=== PATIENT | male | born 1990 | race American Indian/Alaskan Native ===

== ENCOUNTER 2021-04-28 17:00 | Emergency (ER) | payer SELFPAY ==
[2021-04-28 18:01] VITALS: BP 130/79
[2021-04-28] MEDS ORDERED: IBUPROFEN 600 MG TAB PO ONE (21:26)
[2021-04-28] MEDS ORDERED: ACETAMINOPHEN 325 MG TAB PO ONE (21:27)
[2021-04-28 21:55] LABS: Basophils % (Auto) 0.4 % (0.0-1.8); Eosinophils % (Auto) 0.1 % (0.0-4.3); Hematocrit 40.8 % (35.5-45.6); Lymphocytes # (Auto) 0.9 K/mm3 (1.2-5.4); Lymphocytes % (Auto) 11.7 % (13.4-35.0); Mean Corpuscular HGB Conc 32 % (32-34); Mean Corpuscular Volume 74 fl (84-94); Monocytes # (Auto) 1.2 K/mm3 (0.0-0.8); Platelet Count 183 K/mm3 (140-440); Red Cell Distribution Width 15.2 % (13.2-15.2)
--- NOTE | 2021-04-28 22:04 | XRay Report ---
CHEST 2 VIEWS INDICATION / CLINICAL INFORMATION: cough. COMPARISON: None available. FINDINGS: SUPPORT DEVICES: None. HEART / MEDIASTINUM: No significant abnormality. LUNGS / PLEURA: No significant pulmonary or pleural abnormality. No pneumothorax. ADDITIONAL FINDINGS: No significant additional findings. IMPRESSION: 1. No acute findings. Signer Name: Guilherme Gonzalez MD Signed: 04/28/2021 10:00 PM Workstation Name: [id number]
[2021-04-28 22:13] LABS: Alanine Aminotransferase 16 units/L (7-56); Albumin 4.8 g/dL (3.9-5); BUN/Creatinine Ratio 12; Blood Urea Nitrogen 12 mg/dL (9-20); Calcium 9.4 mg/dL (8.4-10.2); Hemolysis Index 5
--- NOTE | 2021-04-28 22:28 | Emergency Department Report ---
- General Chief Complaint: Upper Respiratory Infection Stated Complaint: FLU Source: patient Mode of arrival: Ambulatory Limitations: No Limitations - History of Present Illness Initial Comments: Patient is a 30-year-old -[place] male with no past medical history presents to the ED with complaint of acute onset persistent diffuse body aches and pains, persistent dry cough, back pain, frontal sinus pressure and headache, nasal and sinus congestion, intermittent fever and chills for the last 2 days, worse in the last 12 hours. Patient states that he has been taking dxdy-pbu-mlqittr medications with no relief. 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 Patient states that he has not been vaccinated for COVID-19 viral infection. Patient denies dizziness, syncope, nausea and vomiting or diarrhea, abdominal pain, chest pain, shortness of breath, sore throat, hematuria, dysuria, testicular pain, change in vision or palpitations. MD Complaint: fever, cough, rhinorrhea, nasal congestion, sinus pain, other (Body aches and pains) -: Sudden, days(s) (2) Severity: severe Severity scale (0 -10): 7 Quality: sharp, aching Consistency: constant Improves With: nothing Worsens With: nothing Context: sick contacts Associated Symptoms: denies other symptoms, fever, myalgias, headache, rhinorrhea, nasal congestion, cough. denies: diaphoresis, sore throat, stiff neck, chest pain, shortness of breath, abdominal pain, nausea, vomiting, diarrhea, dysuria, rash, confusion, right sweats, weight loss, epistaxis, hoarseness, ear pain Treatments Prior to Arrival: "cold medicine" - Related Data Previous Rx's Medication Instructions Recorded Last Taken Type Acetaminophen [Tylenol] 500 mg PO Q6HR PRN #30 tablet 04/28/21 Unknown Rx Azithromycin [Zithromax Z-BRIA] 250 mg PO DAILY #6 tablet 04/28/21 Unknown Rx Benzonatate [Tessalon Perles] 100 mg PO Q8HR #30 capsule 04/28/21 Unknown Rx Cetirizine HCl [Zyrtec 10mg tab] 10 mg PO DAILY #30 tablet 04/28/21 Unknown Rx Allergies Allergy/AdvReac Type Severity Reaction Status Date / Time No Known Allergies Allergy Unverified 04/28/21 17:56 ED Review of Systems ROS: Stated complaint: FLU Other details as noted in HPI Constitutional: chills, malaise, weakness. denies: fever Eyes: denies: eye pain, eye discharge, vision change ENT: congestion, other (Frontal sinus pressure). denies: ear pain, throat pain Respiratory: cough. denies: shortness of breath, wheezing Cardiovascular: denies: chest pain, palpitations Endocrine: no symptoms reported Gastrointestinal: denies: abdominal pain, nausea, vomiting, diarrhea Genitourinary: denies: urgency, dysuria Musculoskeletal: arthralgia, myalgia. denies: back pain, joint swelling Skin: denies: rash, lesions Neurological: headache. denies: weakness, paresthesias Psychiatric: denies: anxiety, depression Hematological/Lymphatic: denies: easy bleeding, easy bruising ED Past Medical Hx - Past Medical History Previous Medical History?: No - Surgical History Past Surgical History?: No - Medications Home Medications: Home Medications Medication Instructions Recorded Confirmed Last Taken Type Acetaminophen [Tylenol] 500 mg PO Q6HR PRN #30 tablet 04/28/21 Unknown Rx Azithromycin [Zithromax Z-BRIA] 250 mg PO DAILY #6 tablet 04/28/21 Unknown Rx Benzonatate [Tessalon Perles] 100 mg PO Q8HR #30 capsule 04/28/21 Unknown Rx Cetirizine HCl [Zyrtec 10mg tab] 10 mg PO DAILY #30 tablet 04/28/21 Unknown Rx ED Physical Exam - General Limitations: No Limitations General appearance: alert, in no apparent distress - Head Head exam: Present: atraumatic, normocephalic, normal inspection - Eye Eye exam: Present: normal appearance, PERRL, EOMI Pupils: Present: normal accommodation - ENT ENT exam: Present: normal orophraynx, mucous membranes moist, TM's normal bilaterally, normal external ear exam, other (Grossly congested nasal passages) - Neck Neck exam: Present: normal inspection, full ROM - Respiratory Respiratory exam: Present: normal lung sounds bilaterally. Absent: respiratory distress, wheezes, rales, rhonchi, stridor, chest wall tenderness, accessory muscle use, decreased breath sounds, prolonged expiratory - Cardiovascular Cardiovascular Exam: Present: normal rhythm, tachycardia, normal heart sounds. Absent: systolic murmur, diastolic murmur, rubs, gallop - GI/Abdominal GI/Abdominal exam: Present: soft, normal bowel sounds. Absent: tenderness, guarding, rebound, hyperactive bowel sounds, hypoactive bowel sounds, organomegaly, mass - Extremities Exam Extremities exam: Present: normal inspection, full ROM, normal capillary refill - Back Exam Back exam: Present: normal inspection, full ROM. Absent: tenderness, CVA te nderness (R), CVA tenderness (L), muscle spasm, paraspinal tenderness, vertebral tenderness - Neurological Exam Neurological exam: Present: alert, oriented X3, CN II-XII intact, normal gait, reflexes normal - Psychiatric Psychiatric exam: Present: normal affect, normal mood - Skin Skin exam: Present: warm, dry, intact, normal color. Absent: rash ED Course Vital Signs 04/28/21 04/28/21 18:00 23:15 Temperature 99.8 F H Pulse Rate 105 H 107 H Respiratory 20 Rate Blood Pressure 130/79 O2 Sat by Pulse 99 Oximetry ED Medical Decision Making - Lab Data Result diagrams: 04/28/21 21:30 04/28/21 21:30 - Radiology Data [facility] [address] [place] [address] XRay Report Signed Patient: CHRISTIANO ISBELL MR#: [id number] 8 : 1990 Acct:[id number] Age/Sex: 30 / M ADM Date: 04/28/21 Loc: ED Attending Dr: Ordering Physician: PHILIP THOMASON Date of Service: 04/28/21 Procedure(s): XR chest routine 2V Accession Number(s): [id number] cc: PHILIP THOMASON Fluoro Time In Minutes: CHEST 2 VIEWS INDICATION / CLINICAL INFORMATION: cough. COMPARISON: None available. FINDINGS: SUPPORT DEVICES: None. HEART / MEDIASTINUM: No significant abnormality. LUNGS / PLEURA: No significant pulmonary or pleural abnormality. No pneumothorax. ADDITIONAL FINDINGS: No significant additional findings. IMPRESSION: 1. No acute findings. Signer Name: Guilherme Gonzalez MD Signed: 04/28/2021 10:00 PM Workstation Name: [id number] Transcribed By: TL Dictated By: Guilherme Gonzalez MD Electronically Authenticated By: Guilherme Gonzalez MD Signed Date/Time: 04/28/210 DD/ 99 TD/TT: - Medical Decision Making This is a 30-year-old -[place] male with no past medical history presents to the ED with complaint of acute onset persistent diffuse body aches and pains, persistent dry cough, back pain, frontal sinus pressure and headache, nasal and sinus congestion, intermittent fever and chills for the last 2 days, worse in the last 12 hours. Patient states that he has been taking zygk-sua-eynuokb medications with no relief. 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 In the ED, patient is alert and oriented x3 and is not in any distress but tachycardic in triage. Patient was treated in the ED for pain, and lab test results were reviewed and are all nonactionable. Chest x-ray shows no acute cardiopulmonary abnormalities or pneumonitis. Patient was therefore discharged home on medications and advised to follow-up with his primary care physician in 5 to 7 days for reevaluation. Patient is advised return to the ED immediately if symptoms get worse. Patient was also encouraged to go for COVID-19 vaccination in any of the outpatient facilities. - Differential Diagnosis URI; bronchitis; flu like; sinusitis; pneumonia Critical care attestation.: If time is entered above; I have spent that time in minutes in the direct care of this critically ill patient, excluding procedure time. ED Disposition Clinical Impression: Acute upper respiratory infection, Flu-like symptoms Acute bronchitis Qualifiers: Bronchitis organism: other organism Qualified Code(s): J20.8 - Acute bronchitis due to other specified organisms Disposition: 01 HOME / SELF CARE / HOMELESS Is pt being admited?: No Does the pt Need Aspirin: No Condition: Stable Instructions: Cough, Adult, Cyne-fq-Iaqk, Viral Respiratory Infection, Smzf-Nq-Sqxz, Acute Bronchitis, Adult, Ikpe-bu-Hzwu, Upper Respiratory Infection, Adult, Oywa-my-Xjmp, Acute Bronchitis (ED) Additional Instructions: All lab test results were reviewed and are all nonactionable. Chest x-ray shows no acute cardiopulmonary abnormalities or pneumonitis. Therefore take medications with food, drink plenty of fluids and follow-up with your primary care physician in 5 to 7 days for reevaluation. Return to the ED immediately if symptoms get worse. Prescriptions: Acetaminophen [Tylenol] 500 mg PO Q6HR PRN #30 tablet PRN Reason: Pain , Severe (7-10) Benzonatate [Tessalon Perles] 100 mg PO Q8HR #30 capsule Azithromycin [Zithromax Z-BRIA] 250 mg PO DAILY #6 tablet Cetirizine HCl [Zyrtec 10mg tab] 10 mg PO DAILY #30 tablet Referrals: [facility] [Provider Group] - 3-5 Days Forms: Work/School Release Form(ED) Time of Disposition: 22:29 Print Language: MALAWIAN
== END 2021-04-29 01:41 | disposition home or self-care (01) ==
LOC: ED 17:00
DX: J06.9 Acute upper respiratory infection, unspecified (principal); J20.9 Acute bronchitis, unspecified; R68.89 Other general symptoms and signs; Z79.899 Other long term (current) drug therapy
CPT/HCPCS: 36415; 71046; 80053; 85025